=== PATIENT | female | born 1990 | race Caucasian/White ===

== ENCOUNTER 2017-08-17 19:05 | Inpatient (IN) | payer MEDICAID ==
[2017-08-17] MEDS ORDERED: Lidocaine 1% 50 ML MDV INJECT ONE (19:10)
[2017-08-17] MEDS ORDERED: Oxytocin 10 Units/1 ML SDV IM ONE (19:10)
[2017-08-17] MEDS ORDERED: Sodium Chloride 0.9% 10 ML Syringe FLUSH PRN (19:10)
[2017-08-17] MEDS ORDERED: Oxytocin/Lactated Ringers 10 UNIT/1,000 ML BAG IV SCH (19:15)
[2017-08-17] MEDS ORDERED: Lactated Ringers 1,000 ML IV SCH (19:15)
--- NOTE | 2017-08-17 20:23 | PCM.LDHP ---
L&D History of Present Illness - General Date of Service: 08/17/17 Admit Problem/Dx: Patient Status Order with Admit Dx/Problem 08/17/17 19:14 Patient Status [ADT] Routine Admission Diagnosis/Problem Admission Diagnosis/Problem Normal labor Source of Information: Patient History Limitations: Reports: No Limitations - History of Present Illness Introduction:: Patient is a 27 y/o at 40 5/7 wks presents in active labor. Contractions started 3hr prior to presenting. Checking by nursing and 9 cm dilated. - Related Data Allergies/Adverse Reactions: Allergies Allergy/AdvReac Type Severity Reaction Status Date / Time Penicillins Allergy Unknown Verified 08/17/17 19:12 sulfamethoxazole AdvReac Vomitting Verified 08/17/17 19:12 [From Bactrim] trimethoprim [From Bactrim] AdvReac Vomitting Verified 08/17/17 19:12 Home Medications: Home Meds Calcium Carbonate [Tums] 500 mg PO 02/29/16 [History] Pnv95/Iron Fum/Folic Acid [ Caplet] 02/29/16 [History] Ranitidine HCl [Zantac] 150 mg PO 02/29/16 [History] Ibuprofen [Motrin] 600 mg PO Q4H PRN #30 tablet 03/02/16 [Rx] Past Medical History [employer] History: Reports: : 3 Para: 2 LMP (Approximate): - Past Surgical History HEENT Surgical History: Reports: Tonsillectomy Social & Family History - Tobacco Use Smoking Status *Q: Never Smoker Second Hand Smoke Exposure: No - Alcohol Use Alcohol Use History: No - Recreational Drug Use Recreational Drug Use: No H&P Review of Systems - Review of Systems: Review Of Systems: See Below General: Reports: No Symptoms Pulmonary: Reports: No Symptoms Cardiovascular: Reports: No Symptoms Gastrointestinal: Reports: No Symptoms Genitourinary: Reports: No Symptoms Musculoskeletal: Reports: No Symptoms L&D Exam - Exam Exam: See Below - Vital Signs Weight: 88.587 kg - OB Specific Contraction Intensity: Strong Movement: Active Heart Tones: Present Heart Tones per Min: 140 Heart Rate (FHR) Variability: Moderate (6-25 bmp) Presentation: Vertex - Castanon Score Castanon Score Cervix Position: Anterior Castanon Score Consistency: Soft Castanon Score Effacement: >80% Castanon Score Dilation: > 5 cm Castanon Score Infant's Station: -1 ,0 Castanon Score Total: 12 - Exam General: Alert, Oriented, Cooperative Lungs: Clear to Auscultation, Normal Respiratory Effort Cardiovascular: Regular Rate, Regular Rhythm GI/Abdominal Exam: Soft, Non-Tender Genitourinary: Normal external exam Extremities: Normal Inspection Skin: Warm, Dry, Intact - Problem List (1) 40 weeks gestation of SNOMED Code(s): 47756330 ICD Code: Z3A.40 - 40 WEEKS GESTATION OF Status: Acute Current Visit: Yes (2) Normal labor SNOMED Code(s): 18998452 ICD Code: O80 - ENCOUNTER FOR FULL-TERM UNCOMPLICATED DELIVERY; Z37.9 - OUTCOME OF DELIVERY, UNSPECIFIED Status: Acute Current Visit: Yes (3) GBS (group B Streptococcus carrier), +RV culture, currently SNOMED Code(s): 23910124 ICD Code: O99.820 - STREPTOCOCCUS B CARRIER STATE COMPLICATING Status: Acute Current Visit: Yes Problem List Initiated/Reviewed/Updated: Yes Orders Last 24hrs: Active Orders 24 hr Category Date Time Status Patient Status [ADT] Routine ADT 08/17/17 19:14 Active Activity as Tolerated [RC] PFP Care 08/17/17 19:10 Active Communication Order [RC] ASDIRECTED Care 08/17/17 19:10 Active Heart Tones [RC] ASDIRECTED Care 08/17/17 19:11 Active Notify Provider [RC] PFP Care 08/17/17 19:10 Active Notify Provider [RC] PRN Care 08/17/17 19:10 Active Peripheral IV Care [RC] . DIRECTED Care 08/17/17 19:11 Active Vital Signs [RC] PER UNIT ROUTINE Care 08/17/17 19:10 Active Lactated Ringers [Ringers, Lactated] 1,000 ml Med 08/17/17 19:15 Active IV ASDIRECTED Oxytocin/Lactated Ringers [Pitocin in LR 10 Units/1,000 Med 08/17/17 19:15 Active ML] 10 unit in 1,000 ml IV .CONTINUOUS Sodium Chloride 0.9% [Saline Flush] Med 08/17/17 19:10 Active 10 ml FLUSH ASDIRECTED PRN Vancomycin 1 gm Med 08/17/17 19:45 Active Sodium Chloride 0.9% [Normal Saline] 250 ml IV STAT Electronic Heart Tones Ext w TOCO [WOMSER] Oth 08/17/17 19:10 Ordered Routine Electronic Heart Tones Internal [WOMSER] Per Unit Oth 08/17/17 19:10 Ordered Routine Peripheral IV Insertion Adult [OM.PC] Routine Oth 08/17/17 19:10 Ordered Resuscitation Status Routine Resus Stat 08/17/17 19:10 Ordered Medication Orders Lactated Ringer's (Ringers, Lactated) 1,000 mls @ 100 mls/hr IV ASDIRECTED DELBERT Oxytocin/Lactated Ringer's (Pitocin In Lr 10 Units/1,000 Ml) 10 unit in 1,000 mls @ 500 mls/hr IV .CONTINUOUS DELBERT Vancomycin HCl 1 gm/ Sodium (Chloride) 250 mls @ 250 mls/hr IV STAT ONE Stop: 08/17/17 20:44 Sodium Chloride (Saline Flush) 10 ml FLUSH ASDIRECTED PRN PRN Reason: Keep Vein Open Assessment/Plan Comment:: 27 y/o at 40 5/7 wks presents in labor * GBS positive, delivery imminent. Vancomycin ordered, but not administered * No labs completed prior to delivery * See delivery note
--- NOTE | 2017-08-17 20:32 | PCM.DEL ---
L & D Note - General Info Date of Service: 08/17/17 - Delivery Note Labor: Spontaneous Delivery Outcome: Livebirth Delivery Method: Spontaneous Vaginal Delivery-Single Delivery Mode: Spontaneous Presentation: Right Occiput Anterior (LANEY) Nuchal Cord: Present, Reduced Anesthesia Type: None Amniotic Fluid Description: Clear Episiotomy Type: None Laceration: 1st Degree Placenta: Intact, Spontaneous Cord: 3 Vessels Estimated Blood Loss: 350 Resuscitation Needed: Yes : Bulb Syringe, Stimulated, Warmed, [place] Used Score 1 min: 7 Score 5 min: 9 Delivery Comments (Free Text/Narrative):: Patient complete with BBOW. AROM performed with release of clear fluid. With maternal pushing effort head delivered from LANEY presentation. Nuchal cord present and reduced. With downward traction the shoulders and body delivered. Infant placed on maternal abdomen. Cord clamped and cut. Cord blood obtained. Placenta expelled intact. Inspection shows a small first degree laceration which was not bleeding and so left without suturing - Patient Data Weight - Most Recent: 88.587 kg Med Orders - Current: Current Medications Lactated Ringer's (Ringers, Lactated) 1,000 mls @ 100 mls/hr IV ASDIRECTED DELBERT Oxytocin/Lactated Ringer's (Pitocin In Lr 10 Units/1,000 Ml) 10 unit in 1,000 mls @ 500 mls/hr IV .CONTINUOUS DELBERT Vancomycin HCl 1 gm/ Sodium (Chloride) 250 mls @ 250 mls/hr IV STAT ONE Stop: 08/17/17 20:44 Sodium Chloride (Saline Flush) 10 ml FLUSH ASDIRECTED PRN PRN Reason: Keep Vein Open Discontinued Medications Lidocaine HCl (Xylocaine 1%) 20 ml INJECT ONETIME ONE Stop: 08/17/17 19:11 Oxytocin (Pitocin) 10 unit IM ONETIME ONE Stop: 08/17/17 19:11 - Problem List & Annotations (1) 40 weeks gestation of SNOMED Code(s): 52271851 Code(s): Z3A.40 - 40 WEEKS GESTATION OF Status: Acute Current Visit: Yes (2) Normal labor SNOMED Code(s): 26637130 Code(s): O80 - ENCOUNTER FOR FULL-TERM UNCOMPLICATED DELIVERY; Z37.9 - OUTCOME OF DELIVERY, UNSPECIFIED Status: Acute Current Visit: Yes (3) GBS (group B Streptococcus carrier), +RV culture, currently SNOMED Code(s): 11478270 Code(s): O99.820 - STREPTOCOCCUS B CARRIER STATE COMPLICATING Status: Acute Current Visit: Yes (4) True knot in umbilical cord SNOMED Code(s): 78240628 Code(s): O69.2XX0 - LABOR AND DEL COMP BY OTH CORD ENTANGLE, W COMPRSN, UNSP Status: Acute Current Visit: Yes (5) Vaginal delivery SNOMED Code(s): 237641196 Code(s): O80 - ENCOUNTER FOR FULL-TERM UNCOMPLICATED DELIVERY Status: Acute Current Visit: Yes - Problem List Review Problem List Initiated/Reviewed/Updated: Yes - My Orders Last 24 Hours: My Active Orders 08/17/17 19:10 Activity as Tolerated [RC] PFP Communication Order [RC] ASDIRECTED Notify Provider [RC] PFP Notify Provider [RC] PRN Vital Signs [RC] PER UNIT ROUTINE Sodium Chloride 0.9% [Saline Flush] 10 ml FLUSH ASDIRECTED PRN Electronic Heart Tones Ext w TOCO [WOMSER] Routine Electronic Heart Tones Internal [WOMSER] Per Unit Routine Peripheral IV Insertion Adult [OM.PC] Routine Resuscitation Status Routine 08/17/17 19:11 Heart Tones [RC] ASDIRECTED Peripheral IV Care [RC] . DIRECTED 08/17/17 19:14 Patient Status [ADT] Routine 08/17/17 19:15 Lactated Ringers [Ringers, Lactated] 1,000 ml IV ASDIRECTED Oxytocin/Lactated Ringers [Pitocin in LR 10 Units/1,000 ML] 10 unit in 1,000 ml IV .CONTINUOUS 08/17/17 19:45 Vancomycin 1 gm Sodium Chloride 0.9% [Normal Saline] 250 ml IV STAT - Assessment Assessment:: 27 y/o G3 now P3003 PPD#0 from at 40 5/7 wks - Plan Plan:: * Routine cares * Breast feeding * Discharge home in 2 days * Placenta release policy signed
[2017-08-17] MEDS ORDERED: Ibuprofen 600 MG Tab PO PRN (21:22)
[2017-08-17] MEDS ORDERED: Witch Hazel Medicated Pads 100/Jar TOP PRN ×2 (21:23→21:30)
[2017-08-17] MEDS ORDERED: Benzocaine/Menthol 20%-0.5% Spray 56 GM Canister TOP PRN ×2 (21:24→21:30)
[2017-08-17] MEDS ORDERED: Acetaminophen 325 MG Tab PO PRN (21:30)
[2017-08-17] MEDS ORDERED: Lanolin 100% Cream 7 GM Tube TOP PRN (21:30)
[2017-08-17] MEDS: Ibuprofen 600 MG Tab PO PRN (22:14)
[2017-08-18] MEDS: Ibuprofen 600 MG Tab PO PRN ×3 (04:32→20:09)
--- NOTE | 2017-08-18 07:13 | PCM.PNPP ---
- General Info Date of Service: 08/18/17 Functional Status: Reports: Pain Controlled, Tolerating Diet, Ambulating, Urinating - Review of Systems General: Reports: No Symptoms Pulmonary: Reports: No Symptoms Cardiovascular: Reports: No Symptoms Gastrointestinal: Reports: No Symptoms Genitourinary: Reports: No Symptoms - Patient Data Vital Signs - Most Recent: Last Vital Signs Temp 36.7 C 08/18/17 04:37 Pulse 59 L 08/18/17 04:37 Resp 16 08/18/17 04:37 BP 110/70 08/18/17 04:37 Pulse Ox 96 08/18/17 04:37 Weight - Most Recent: 88.587 kg I&O - Last 24 Hours: Intake & Output 08/17/17 08/18/17 08/18/17 22:59 06:59 14:59 Intake Total 1200 Balance 1200 Med Orders - Current: Current Medications Acetaminophen (Tylenol) 650 mg PO Q4H PRN PRN Reason: mild pain or fever Benzocaine/Menthol (Dermoplast Pain Relief Eckert) 0 gm TOP ASDIRECTED PRN PRN Reason: Perineal Comfort Measure Last Admin: 08/17/17 22:13 Dose: 1 canister Emollient Ointment (Lansinoh Hpa) 0 gm TOP ASDIRECTED PRN PRN Reason: Sore Nipples Ibuprofen (Motrin) 600 mg PO Q6H PRN PRN Reason: Mild pain or fever Last Admin: 08/18/17 04:32 Dose: 600 mg Influenza Virus Vaccine (Flulaval Quad [id number]) 60 mcg IM .ONCE ONE Stop: 08/18/17 09:01 Arielle Pillai (Cookie) 1 pad TOP ASDIRECTED PRN PRN Reason: Hemorrhoid pain Last Admin: 08/17/17 22:13 Dose: 1 tub Discontinued Medications Benzocaine/Menthol (Dermoplast Pain Relief Eckert) 0 gm TOP ASDIRECTED PRN PRN Reason: Pain Lactated Ringer's (Ringers, Lactated) 1,000 mls @ 100 mls/hr IV ASDIRECTED DELBERT Last Admin: 08/17/17 20:07 Dose: 100 mls/hr Oxytocin/Lactated Ringer's (Pitocin In Lr 10 Units/1,000 Ml) 10 unit in 1,000 mls @ 500 mls/hr IV .CONTINUOUS DELBERT Last Admin: 08/17/17 20:17 Dose: 500 mls/hr Vancomycin HCl 1 gm/ Sodium (Chloride) 250 mls @ 250 mls/hr IV STAT ONE Stop: 08/17/17 20:44 Last Admin: 08/17/17 22:17 Dose: Not Given Ibuprofen (Motrin) 600 mg PO Q6H PRN PRN Reason: Pain Lidocaine HCl (Xylocaine 1%) 20 ml INJECT ONETIME ONE Stop: 08/17/17 19:11 Last Admin: 08/17/17 23:31 Dose: Not Given Oxytocin (Pitocin) 10 unit IM ONETIME ONE Stop: 08/17/17 19:11 Last Admin: 08/17/17 23:30 Dose: Not Given Sodium Chloride (Saline Flush) 10 ml FLUSH ASDIRECTED PRN PRN Reason: Keep Vein Open Witch Freya (Tucks) 1 pad TOP ASDIRECTED PRN PRN Reason: Pain - Infant Interaction Infant Disposition, : in Room with Family Interaction: Holding Infant Infant Feeding: Breastfed Infant; Nursed Well Support Person: - Recovery Exam Fundal Tone: Firm Fundal Level: 1 Fingerbreadths Below Umbilicus Fundal Placement: Midline Lochia Amount: Small, Moderate Lochia Color: Rubra/Red Episiotomy/Laceration: None Bladder Status: Voiding Urinary Elimination: Voided - Exam General: Alert, Oriented, Cooperative GI/Abdominal Exam: Soft, Non-Tender Extremities: Normal Inspection Skin: Warm, Dry, Intact - Problem List & Annotations (1) 40 weeks gestation of SNOMED Code(s): 94072497 Code(s): Z3A.40 - 40 WEEKS GESTATION OF Status: Acute Current Visit: Yes (2) Normal labor SNOMED Code(s): 41315808 Code(s): O80 - ENCOUNTER FOR FULL-TERM UNCOMPLICATED DELIVERY; Z37.9 - OUTCOME OF DELIVERY, UNSPECIFIED Status: Acute Current Visit: Yes (3) GBS (group B Streptococcus carrier), +RV culture, currently SNOMED Code(s): 12731446 Code(s): O99.820 - STREPTOCOCCUS B CARRIER STATE COMPLICATING Status: Acute Current Visit: Yes (4) True knot in umbilical cord SNOMED Code(s): 83077266 Code(s): O69.2XX0 - LABOR AND DEL COMP BY OTH CORD ENTANGLE, W COMPRSN, UNSP Status: Acute Current Visit: Yes Qualifiers: Fetus number: single or unspecified fetus Qualified Code(s): O69.2XX0 - Labor and delivery complicated by other cord entanglement, with compression, not applicable or unspecified (5) Vaginal delivery SNOMED Code(s): 090124090 Code(s): O80 - ENCOUNTER FOR FULL-TERM UNCOMPLICATED DELIVERY Status: Acute Current Visit: Yes - Problem List Review Problem List Initiated/Reviewed/Updated: Yes - My Orders Last 24 Hours: My Active Orders 08/17/17 19:10 Activity as Tolerated [RC] PFP Communication Order [RC] ASDIRECTED Notify Provider [RC] PFP Notify Provider [RC] PRN Vital Signs [RC] PER UNIT ROUTINE Resuscitation Status Routine 08/17/17 19:11 Heart Tones [RC] ASDIRECTED Peripheral IV Care [RC] . DIRECTED 08/17/17 21:30 Activity as Tolerated [RC] PER UNIT ROUTINE Vital Signs [RC] 20,04,12 Acetaminophen [Tylenol] 650 mg PO Q4H PRN Benzocaine/Menthol [Dermoplast Pain Relief Eckert] See Dose Instructions TOP ASDIRECTED PRN Ibuprofen [Motrin] 600 mg PO Q6H PRN Lanolin [Lansinoh HPA] See Dose Instructions TOP ASDIRECTED PRN Witch Freya [Tucks] 1 pad TOP ASDIRECTED PRN Assess Lochia [WOMSER] Per Unit Routine Assess Uterine Involution [WOMSER] Per Unit Routine Breast Pump [WOMSER] Per Unit Routine Heat Therapy [OM.PC] PRN Ice Therapy [OM.PC] Per Unit Routine Medication Administration Instruction [OM.PC] Routine Perineal Care [OM.PC] Per Unit Routine Peripheral IV Discontinue [OM.PC] Routine Sitz Bath [OM.PC] Per Unit Routine 08/17/17 Breakfast Regular Diet [DIET] 08/18/17 09:00 FLU Vacc [id number](6MOS UP)/PF [Flulaval Quad [id number]] 60 mcg IM .ONCE ONE 08/18/17 21:30 Heat Therapy [OM.PC] PRN - Assessment Assessment:: 27 y/o G3 now P3003 PPD#1 from at 40 5/7 wks - Plan Plan:: * Routine cares * Breast feeding * Discharge home tomorrow
[2017-08-18] MEDS ORDERED: FLU Vacc QS 2017-18 (6mos UP)/PF 60 MCG/0.5 ML Syringe IM ONE (09:00)
[2017-08-19] MEDS: Ibuprofen 600 MG Tab PO PRN ×2 (03:42→10:45)
--- NOTE | 2017-08-19 05:32 | PCM.PNPP ---
- General Info Date of Service: 08/19/17 Functional Status: Reports: Pain Controlled, Tolerating Diet, Ambulating, Urinating - Review of Systems General: Reports: No Symptoms Pulmonary: Reports: No Symptoms Cardiovascular: Reports: No Symptoms Gastrointestinal: Reports: No Symptoms Genitourinary: Reports: No Symptoms - Patient Data Vital Signs - Most Recent: Last Vital Signs Temp 36.4 C 08/18/17 20:28 Pulse 74 08/18/17 20:28 Resp 14 08/18/17 20:28 BP 116/75 08/18/17 20:28 Pulse Ox 96 08/18/17 20:28 Weight - Most Recent: 88.587 kg I&O - Last 24 Hours: Intake & Output 08/18/17 08/18/17 08/19/17 14:59 22:59 06:59 Intake Total 120 320 Balance 120 320 Med Orders - Current: Current Medications Acetaminophen (Tylenol) 650 mg PO Q4H PRN PRN Reason: mild pain or fever Benzocaine/Menthol (Dermoplast Pain Relief Crawford) 0 gm TOP ASDIRECTED PRN PRN Reason: Perineal Comfort Measure Last Admin: 08/17/17 22:13 Dose: 1 canister Emollient Ointment (Lansinoh Hpa) 0 gm TOP ASDIRECTED PRN PRN Reason: Sore Nipples Ibuprofen (Motrin) 600 mg PO Q6H PRN PRN Reason: Mild pain or fever Last Admin: 08/19/17 03:42 Dose: 600 mg Witch Freya (Tucks) 1 pad TOP ASDIRECTED PRN PRN Reason: Hemorrhoid pain Last Admin: 08/17/17 22:13 Dose: 1 tub Discontinued Medications Benzocaine/Menthol (Dermoplast Pain Relief [place]) 0 gm TOP ASDIRECTED PRN PRN Reason: Pain Lactated Ringer's (Ringers, Lactated) 1,000 mls @ 100 mls/hr IV ASDIRECTED DELBERT Last Admin: 08/17/17 20:07 Dose: 100 mls/hr Oxytocin/Lactated Ringer's (Pitocin In Lr 10 Units/1,000 Ml) 10 unit in 1,000 mls @ 500 mls/hr IV .CONTINUOUS DELBERT Last Admin: 08/17/17 20:17 Dose: 500 mls/hr Vancomycin HCl 1 gm/ Sodium (Chloride) 250 mls @ 250 mls/hr IV STAT ONE Stop: 08/17/17 20:44 Last Admin: 08/17/17 22:17 Dose: Not Given Ibuprofen (Motrin) 600 mg PO Q6H PRN PRN Reason: Pain Influenza Virus Vaccine (Flulaval Quad [id number]) 60 mcg IM .ONCE ONE Stop: 08/18/17 09:01 Last Admin: 08/18/17 20:16 Dose: 60 mcg Lidocaine HCl (Xylocaine 1%) 20 ml INJECT ONETIME ONE Stop: 08/17/17 19:11 Last Admin: 08/17/17 23:31 Dose: Not Given Oxytocin (Pitocin) 10 unit IM ONETIME ONE Stop: 08/17/17 19:11 Last Admin: 08/17/17 23:30 Dose: Not Given Sodium Chloride (Saline Flush) 10 ml FLUSH ASDIRECTED PRN PRN Reason: Keep Vein Open Witsurjit Freya (Tucks) 1 pad TOP ASDIRECTED PRN PRN Reason: Pain - Infant Interaction Disposition, : [place] in Room with Family Infant Interaction: Holding Infant Infant Feeding: Breastfed ; Nursed Well Support Person: - Recovery Exam Fundal Tone: Firm Fundal Level: 2 Fingerbreadths Below Umbilicus Fundal Placement: Midline Lochia Amount: Small Lochia Color: Rubra/Red Perineum Description: Intact, Minimal Bruising/Swelling Episiotomy/Laceration: None Bladder Status: Voiding Urinary Elimination: Voided - Exam General: Alert, Oriented, Cooperative GI/Abdominal Exam: Soft, Non-Tender Extremities: Normal Inspection Skin: Warm, Dry, Intact - Problem List & Annotations (1) 40 weeks gestation of SNOMED Code(s): 03140770 Code(s): Z3A.40 - 40 WEEKS GESTATION OF Status: Acute Current Visit: Yes (2) Normal labor SNOMED Code(s): 22001686 Code(s): O80 - ENCOUNTER FOR FULL-TERM UNCOMPLICATED DELIVERY; Z37.9 - OUTCOME OF DELIVERY, UNSPECIFIED Status: Acute Current Visit: Yes (3) GBS (group B Streptococcus carrier), +RV culture, currently SNOMED Code(s): 51527649 Code(s): O99.820 - STREPTOCOCCUS B CARRIER STATE COMPLICATING Status: Acute Current Visit: Yes (4) True knot in umbilical cord SNOMED Code(s): 23545966 Code(s): O69.2XX0 - LABOR AND DEL COMP BY OTH CORD ENTANGLE, W COMPRSN, UNSP Status: Acute Current Visit: Yes Qualifiers: Fetus number: single or unspecified fetus Qualified Code(s): O69.2XX0 - Labor and delivery complicated by other cord entanglement, with compression, not applicable or unspecified (5) Vaginal delivery SNOMED Code(s): 100593670 Code(s): O80 - ENCOUNTER FOR FULL-TERM UNCOMPLICATED DELIVERY Status: Acute Current Visit: Yes - Problem List Review Problem List Initiated/Reviewed/Updated: Yes - My Orders Last 24 Hours: My Active Orders 08/18/17 21:30 Heat Therapy [OM.PC] PRN - Assessment Assessment:: 27 y/o G3 now P3003 PPD#2 from at 40 5/7 wks - Plan Plan:: * Routine cares * Breast feeding * Discharge home today
--- NOTE | 2017-08-19 05:33 | PCM.DCSUM1 ---
Discharge Summary - Discharge Data Discharge Date: 08/19/17 Discharge Disposition: Home, Self-Care 01 Condition: Good - Discharge Diagnosis/Problem(s) (1) 40 weeks gestation of SNOMED Code(s): 85903951 ICD Code: Z3A.40 - 40 WEEKS GESTATION OF Status: Acute Current Visit: Yes (2) Normal labor SNOMED Code(s): 73951095 ICD Code: O80 - ENCOUNTER FOR FULL-TERM UNCOMPLICATED DELIVERY; Z37.9 - OUTCOME OF DELIVERY, UNSPECIFIED Status: Acute Current Visit: Yes (3) GBS (group B Streptococcus carrier), +RV culture, currently SNOMED Code(s): 59687582 ICD Code: O99.820 - STREPTOCOCCUS B CARRIER STATE COMPLICATING Status: Acute Current Visit: Yes (4) True knot in umbilical cord SNOMED Code(s): 17185605 ICD Code: O69.2XX0 - LABOR AND DEL COMP BY OTH CORD ENTANGLE, W COMPRSN, UNSP Status: Acute Current Visit: Yes Qualifiers: Fetus number: single or unspecified fetus Qualified Code(s): O69.2XX0 - Labor and delivery complicated by other cord entanglement, with compression, not applicable or unspecified (5) Vaginal delivery SNOMED Code(s): 615444468 ICD Code: O80 - ENCOUNTER FOR FULL-TERM UNCOMPLICATED DELIVERY Status: Acute Current Visit: Yes - Patient Summary/Data Complications: None Consults: None Recommended Follow-up Testing/Procedures: Follow up in 2 weeks for check Hospital Course: 27 y/o presented at 40 5/7 wk in labor, when presented was 9 cm. Progressed rapidly to complete dilation and underwent an uncomplicated . See delivery note. she did well and was discharged home on PPD#2 - Patient Instructions Diet: Regular Diet as Tolerated Activity: As Tolerated Activity, Other: Pelvic Rest for 6 weeks Driving: May Drive Today Showering/Bathing: May Shower Showering/Bathing, Other: May Bathe Notify Provider of: Fever, Increased Pain, Swelling and Redness, Drainage, Nausea and/or Vomiting - Discharge Plan Home Medications: Home Meds Calcium Carbonate [Tums] 500 mg PO 02/29/16 [History] Pnv95/Iron Fum/Folic Acid [ Caplet] 02/29/16 [History] Ranitidine HCl [Zantac] 150 mg PO 02/29/16 [History] Ibuprofen [Motrin] 600 mg PO Q4H PRN #30 tablet 03/02/16 [Rx] Referrals: Jesus Powell MD [Physician] - (2 weeks for check ) - Discharge Summary/Plan Comment DC Time >30 min.: No - Patient Data Vitals - Most Recent: Last Vital Signs Temp 36.4 C 08/18/17 20:28 Pulse 74 08/18/17 20:28 Resp 14 08/18/17 20:28 BP 116/75 08/18/17 20:28 Pulse Ox 96 08/18/17 20:28 Weight - Most Recent: 88.587 kg I&O - Last 24 hours: Intake & Output 08/18/17 08/18/17 08/19/17 14:59 22:59 06:59 Intake Total 120 320 Balance 120 320 Med Orders - Current: Current Medications Acetaminophen (Tylenol) 650 mg PO Q4H PRN PRN Reason: mild pain or fever Benzocaine/Menthol (Dermoplast Pain Relief D[place]) 0 gm TOP ASDIRECTED PRN PRN Reason: Perineal Comfort Measure Last Admin: 08/17/17 22:13 Dose: 1 canister Emollient Ointment (Lansinoh Hpa) 0 gm TOP ASDIRECTED PRN PRN Reason: Sore Nipples Ibuprofen (Motrin) 600 mg PO Q6H PRN PRN Reason: Mild pain or fever Last Admin: 08/19/17 03:42 Dose: 600 mg Witch Freya (Tucks) 1 pad TOP ASDIRECTED PRN PRN Reason: Hemorrhoid pain Last Admin: 08/17/17 22:13 Dose: 1 tub Discontinued Medications Benzocaine/Menthol (Dermoplast Pain Relief [place]) 0 gm TOP ASDIRECTED PRN PRN Reason: Pain Lactated Ringer's (Ringers, Lactated) 1,000 mls @ 100 mls/hr IV ASDIRECTED DELBERT Last Admin: 08/17/17 20:07 Dose: 100 mls/hr Oxytocin/Lactated Ringer's (Pitocin In Lr 10 Units/1,000 Ml) 10 unit in 1,000 mls @ 500 mls/hr IV .CONTINUOUS DELBERT Last Admin: 08/17/17 20:17 Dose: 500 mls/hr Vancomycin HCl 1 gm/ Sodium (Chloride) 250 mls @ 250 mls/hr IV STAT ONE Stop: 08/17/17 20:44 Last Admin: 08/17/17 22:17 Dose: Not Given Ibuprofen (Motrin) 600 mg PO Q6H PRN PRN Reason: Pain Influenza Virus Vaccine (Flulaval Quad [id number]) 60 mcg IM .ONCE ONE Stop: 08/18/17 09:01 Last Admin: 08/18/17 20:16 Dose: 60 mcg Lidocaine HCl (Xylocaine 1%) 20 ml INJECT ONETIME ONE Stop: 08/17/17 19:11 Last Admin: 08/17/17 23:31 Dose: Not Given Oxytocin (Pitocin) 10 unit IM ONETIME ONE Stop: 08/17/17 19:11 Last Admin: 08/17/17 23:30 Dose: Not Given Sodium Chloride (Saline Flush) 10 ml FLUSH ASDIRECTED PRN PRN Reason: Keep Vein Open Arielle Pillai (Cookie) 1 pad TOP ASDIRECTED PRN PRN Reason: Pain *Q Meaningful Use (DIS) - VTE *Q VTE Criteria *Q: - Stroke *Q Stroke Criteria *Q: - AMI *Q AMI Criteria *Q:
[2017-08-19 13:59] VITALS: BP 128/71
== END 2017-08-19 16:30 | disposition home or self-care (01) | DRG 775 ==
LOC: JD.OBCHECK 19:05 → JD.OB 19:05 → JD.OBCHECK 19:13 → JD.OB 19:14 → OBSVTOIN 20:04
PROVIDERS: ADMIT Obstetrics & Gynecology; ATTEND Obstetrics & Gynecology
PROC: 10E0XZZ Delivery of Products of Conception, External Approach (ICD-10-PCS; principal; 2017-08-17)
PROC: 10907ZC Drainage of Amniotic Fluid, Therapeutic from Products of Conception, Via Natural or Artificial Opening (ICD-10-PCS; 2017-08-17)
PROC: 3E0234Z Introduction of Serum, Toxoid and Vaccine into Muscle, Percutaneous Approach (ICD-10-PCS; 2017-08-18)
DX: O48.0 Post-term pregnancy (principal); O99.824 Streptococcus B carrier state complicating childbirth; O69.1XX0 Labor and delivery complicated by cord around neck, with compression, not applicable or unspecified; O70.0 First degree perineal laceration during delivery; Z3A.41 41 weeks gestation of pregnancy; Z37.0 Single live birth; Z23 Encounter for immunization; Z88.0 Allergy status to penicillin; Z88.1 Allergy status to other antibiotic agents
CPT/HCPCS: 59409; 90686; A9270-GY; G0008; J2590; J7120

== ENCOUNTER 2024-10-14 09:09 | Inpatient (IN) | payer BC ==
[2024-10-14] MEDS ORDERED: Nalbuphine 10 MG/1 ML Vial IVPUSH PRN (09:34)
[2024-10-14] MEDS ORDERED: Lidocaine 1% 50 ML MDV INJECT PRN (09:34)
[2024-10-14] MEDS ORDERED: Ondansetron 4 MG/2 ML SDV IVPUSH PRN (09:34)
[2024-10-14] MEDS ORDERED: Sodium Chloride 0.9% 10 ML Syringe FLUSH PRN (09:34)
[2024-10-14] MEDS ORDERED: ePHEDrine 50 MG/ML SDV IVPUSH PRN (09:50)
[2024-10-14] MEDS ORDERED: diphenhydrAMINE 50 MG/ML SDV IVPUSH PRN (09:50)
[2024-10-14] MEDS: Lactated Ringers 1,000 ML IV SCH (09:52)
[2024-10-14 10:07] LABS: BASOPHILS PERCENT AUTO 0.1 % (0.0-1.0); EOSINOPHILS PERCENT AUTO 0.1 % (0.0-6.0); HEMATOCRIT 40.2 % (37.0-47.0); HEMOGLOBIN 14.2 gm/dl (12.0-16.0); IMMATURE GRAN PERCENT AUTO 0.6 % (0.0-0.4); LYMPHOCYTES ABSOLUTE AUTO 0.7 K/mm3 (1.0-4.8); MEAN CORPUSCULAR HEMOGLOBIN 31.5 pg (28.0-32.0); MEAN CORPUSCULAR HGB CONC 35.3 g/dl (32.0-36.0); MEAN CORPUSCULAR VOLUME 89.1 fl (83.0-99.0); MEAN PLATELET VOLUME 11.3 fl (9.4-12.3); MONOCYTES ABSOLUTE AUTO 0.5 K/mm3 (0.0-0.8); MONOCYTES PERCENT AUTO 2.9 % (0.0-8.0); NEUTROPHILS ABSOLUTE AUTO 15.2 K/mm3 (1.8-7.7); NEUTROPHILS PERCENT AUTO 92.3 % (41.0-71.0); PLATELET COUNT,PLT 178 K/mm3 (150-400); RED BLOOD CELL COUNT 4.51 M/mm3 (4.10-5.30); WHITE BLOOD CELL COUNT,WBC 16.41 K/mm3 (3.9-11.3)
[2024-10-14] MEDS: Bupivacaine/fentaNYL/NS 100 ML Bag EPIDUR PRN (10:07)
[2024-10-14 11:01] LABS: SLIDE REVIEW ABNORMAL SMEAR
[2024-10-14] MEDS: Oxytocin/0.9 % Sodium Chloride 30 UNIT/500 ML BAG IV SCH (13:08)
[2024-10-14] MEDS ORDERED: Docusate Sodium 100 MG Cap PO PRN (14:23)
[2024-10-14] MEDS: Benzocaine/Menthol 20%-0.5% Spray 78 GM Cannister TOP PRN (15:50)
[2024-10-14] MEDS: Witch Hazel Medicated Pads 40/Jar TOP PRN (15:50)
[2024-10-14] MEDS: Ibuprofen 800 MG Tab PO PRN (16:59)
[2024-10-14] MEDS: Acetaminophen 325 MG Tab PO PRN (20:33)
[2024-10-14] MEDS: Sodium Chloride 0.9% 10 ML Syringe FLUSH SCH (22:45)
[2024-10-15 06:25] LABS: GROUP B STREP BY PCR NEGATIVE (NEGATIVE)
[2024-10-15 12:27] VITALS: BP 98/48; PULSE 82
[2024-10-17 13:42] LABS: HEP B SURFACE AG Negative (Negative)
[2024-10-17 17:46] LABS: HCV AB BY CIA INTERP Negative (Negative); HEPC AB BY CIA INDEX 0.15 IV
== END 2024-10-15 14:15 | disposition home or self-care (01) | DRG 560 ==
LOC: JD.OBCHECK 09:09 → JD.OB 09:11 → JD.OBCHECK 09:40 → OBSVTOIN 13:09 → JD.OB 13:10
PROVIDERS: ADMIT Obstetrics & Gynecology; ATTEND Obstetrics & Gynecology
PROC: 10E0XZZ Delivery of Products of Conception, External Approach (ICD-10-PCS; principal; 2024-10-14)
PROC: 0HQ9XZZ Repair Perineum Skin, External Approach (ICD-10-PCS; 2024-10-14)
PROC: 3E0R3BZ Introduction of Anesthetic Agent into Spinal Canal, Percutaneous Approach (ICD-10-PCS; 2024-10-14)
PROC: 00HU33Z Insertion of Infusion Device into Spinal Canal, Percutaneous Approach (ICD-10-PCS; 2024-10-14)
DX: O48.0 Post-term pregnancy (principal); Z37.0 Single live birth; O77.0 Labor and delivery complicated by meconium in amniotic fluid; O70.0 First degree perineal laceration during delivery; Z3A.41 41 weeks gestation of pregnancy; Z88.2 Allergy status to sulfonamides; Z88.1 Allergy status to other antibiotic agents; Z90.89 Acquired absence of other organs
CPT/HCPCS: 36415; 51701; 59025; 59409; 85025; 86592; 86762; 86803; 86850; 86900; 86901; 87340; 87653; A9270-GY; C1758; J3490; J7120; J7999